=== PATIENT | male | born 1960 | race Caucasian/White ===

== ENCOUNTER 2020-12-29 17:07 | Emergency (ER) | payer BC, SELFPAY ==
--- NOTE | ~2020-12-29 | XR_ITS ---
XR foot LT min 3V 12/29/2020 17:37 Indication: Left foot pain after blunt trauma Procedure: 4 views left foot Comparison: No prior studies for comparison. Findings: There is mild osteoarthritis of the first MTP joint. Normal mineralization. Lisfranc joint is intact. Small degenerative calcaneal enthesophytes. No acute fracture or traumatic malalignment. N o foreign bodies. No significant soft tissue abnormality. Impression: 1: No acute fracture. Reviewed, dictated and finalized at location A. Impression: 1: No acute fracture.
--- NOTE | 2020-12-29 17:10 | ED.GENADULT ---
HPI - General Adult General Chief complaint: Extremity Injury, Lower Stated complaint: lt big toe injury Time Seen by Provider: 12/29/20 17:10 Source: patient Mode of arrival: ambulatory Limitations: no limitations History of Present Illness HPI narrative: 60-year-old male patient presents to the [facility] with complaints of left great toe pain. Patient states that yesterday he dropped a piece of plywood onto the left toe. Patient states yesterday he had was elevating it, icing it and taking Tylenol for pain. Patient states it hurts when anybody touches it or when he tries to walk on it. Related Data Home Medications Medication Instructions Recorded Confirmed atorvastatin 10 mg PO HS 12/29/20 12/29/20 Allergies Allergy/AdvReac Type Severity Reaction Status Date / Time mold Allergy Intermediate Hives Verified 12/29/20 17:19 Review of Systems Review of Systems: Narrative: CONSTITUTIONAL: Denies fever, chills, or sweats. EYES: Denies visual changes, redness, or discharge. ENT: Denies rhinorrhea, congestion, sore throat, or otalgia. CARDIOVASCULAR: Denies chest pain, palpitations, or edema. RESPIRATORY: Denies cough or dyspnea. GASTROINTESTINAL: Denies abdominal pain, nausea, vomiting, or diarrhea. GENITOURINARY: Denies dysuria or hematuria. SKIN: Denies rash or itching. MUSCULOSKELETAL: Denies back pain, joint pain, or myalgia. Positive left great toe pain NEUROLOGIC: Denies headache, numbness, or weakness. PSYCHIATRIC: Denies anxiety or depression. [facility] Past Medical History Medical History Dyslipidemia Elevated cholesterol Elevated triglycerides with high cholesterol Erectile dysfunction History of thyroid cancer Hypogonadism Hypothyroidism associated with surgical procedure Mass of right side of neck 01/2007 Surgical History Surgical History History of thyroidectomy, total 03/2007 - with stage pT1 Family History Family History Sibling Family history of mental disorder Depression HOCM (hypertrophic obstructive cardiomyopathy) Mother Family history of chronic obstructive pulmonary disease Family history of malignant neoplasm of breast in first degree relative Social History Social History (Reviewed 12/29/20 @ 17:11 by AYALA Mcneil Smoking status: Never smoker Second hand tobacco smoke exposure: No Alcohol intake: current Substance use: never Substance use type: does not use Gender identity (if verbalized by the patient): Male Comments At the time of my signature I agree with nursing past medical history, surgical, social, and family history. There is no relevant family history pertinent to the presenting complaint. Exam Narrative: Exam Narrative: GENERAL: Well-appearing, well-nourished, and in no acute distress. HEAD: Normocephalic, atraumatic. EYES: PERRLA and EOMI. ENT: Nares clear, no rhinorrhea or epistaxis. Mucous membranes moist. NECK: Supple. No lymphadenopathy CHEST: Clear to auscultation. No respiratory distress. HEART: Regular rate and rhythm. No murmur heard. Normal peripheral pulses. ABDOMEN: Soft, nontender, nondistended, normal active bowel sounds. EXTREMITIES: Patient able to bear weight and ambulate but has increased pain to the left great toe. Patient does have some erythema and bruising present to the left great toe. Slight bruising noted towards the distal end of the second toe on the left foot as well. The L foot is without obvious asymmetry or deformity when compared to the R foot. No bony step-off, tender to palpation over the left great and left second toes, no tenderness over the midfoot or hindfoot or sole. Patient does have some blood noted underneath the left great toe nailbed. Normal plantar/dorsiflexion, inversion/eversion. Distal motor and neurovascular status are intact SKIN: W
[2020-12-29 17:12] VITALS: BP 143/93; PULSE 68; RESP 18; TEMP 36.7; O2SAT 97
== END 2020-12-29 18:03 | disposition home or self-care (01) ==
PROVIDERS: Emergency Provider Nurse Practitioner Family; PCP Family Medicine
DX: S90.212A Contusion of left great toe with damage to nail, initial encounter (principal); W20.8XXA Other cause of strike by thrown, projected or falling object, initial encounter; E78.2 Mixed hyperlipidemia; E89.0 Postprocedural hypothyroidism; Z85.850 Personal history of malignant neoplasm of thyroid
CPT/HCPCS: 11740; 73630; 99213; G0463